=== PATIENT | female | born 1960 | race Caucasian/White ===

== ENCOUNTER 2017-06-19 11:22 | Inpatient (IN) ==
--- NOTE | 2017-06-18 08:53 | Discharge Summary ---
<Enriqueta Vieira E - Last Filed: 06/18/17 08:51> Date of Encounter: 06/18/17 - Discharge Diagnosis (1) Status post total replacement of left shoulder Priority: Primary Status: Acute (2) Arthritis of left shoulder region Priority: Primary Status: Chronic (3) Atrial fibrillation Priority: Secondary Status: Chronic Qualifiers: Atrial fibrillation type: unspecified Qualified Code(s): I48.91 - Unspecified atrial fibrillation (4) AICD (automatic cardioverter/defibrillator) present Priority: Secondary Status: Chronic (5) NSVT (nonsustained ventricular tachycardia) Priority: Secondary Status: Chronic (6) Tobacco dependence Priority: Secondary Status: Chronic (7) Obesity Priority: Secondary Status: Chronic Qualifiers: Obesity type: unspecified obesity type Obesity classification: unspecified obesity classification Serious obesity comorbidity presence: unspecified whether serious comorbidity present Qualified Code(s): E66.9 - Obesity, unspecified - Hospital Course Hospital course: Ms. Velasquez is a 57 year old female - Time Spent with Patient Total time spent providing and/or coordinating discharge services: - Discharge Medications Home Medications: Albuterol Sulfate [Proair Hfa] 2 puff IH Q4-6H PRN 12/29/16 [History] Budesonide/Formoterol 160/4.5 [Symbicort 160/4.5] 2 puff IH BIDR 12/29/16 [ History] Cetirizine HCl [Zyrtec] 10 mg PO DAILY 12/29/16 [History] Enoxaparin [Lovenox] 40 mg SQ DAILY 12/29/16 [History] Lisinopril 2.5 mg PO DAILY 12/29/16 [History] Warfarin [Coumadin] 7.5 mg PO 1800 12/29/16 [History] OxyCODONE Immed Rel [Roxicodone 5 MG] 5 mg PO Q6HR PRN 7 Days #28 tablet [Rx] Metoprolol XL (24 HR) Succ [Toprol Xl] 25 mg PO DAILY 06/19/17 [History] SUMAtriptan Succinate [Imitrex] 100 mg PO DAILY PRN 06/19/17 [History] Allergies/Adverse Reactions: 3 Allergy/AdvReac Type Severity Reaction Status Date / Time fexofenadine [From Violette] Allergy Rash Verified 06/19/17 11:41 hydrocodone Allergy Hives Verified 06/19/17 11:41 loratadine [From Claritin] Allergy See Verified 06/19/17 11:41 Comments codeine AdvReac Vomiting Verified 06/19/17 11:41 tramadol AdvReac Headache Verified 06/19/17 11:41 Primary care physician: Molina Sheridan MD - Patient Status Disposition: Home, Self-Care Condition: Good - Discharge Instructions Follow Up With: Molina Sheridan MD [Primary Care Provider] - <Molina Sheridan - Last Filed: 06/20/17 06:29> Orders not resulted at time of discharge: Pending orders 06/19/17 00:00 XR shoulder complete LT [XR] Routine 06/19/17 01:00 Hemoglobin and Hematocrit [HEME] Routine Date of Encounter: 06/20/17 Time of Encounter: 06:29 - Discharge Diagnosis (1) Obesity (BMI 30.0-34.9) Priority: Secondary Status: Chronic (2) Status post total replacement of left shoulder Priority: Primary Status: Acute (3) Arthritis of left shoulder region Priority: Primary Status: Chronic (4) Atrial fibrillation Priority: Secondary Status: Chronic Qualifiers: Atrial fibrillation type: unspecified Qualified Code(s): I48.91 - Unspecified atrial fibrillation (5) AICD (automatic cardioverter/defibrillator) present Priority: Secondary Status: Chronic (6) NSVT (nonsustained ventricular tachycardia) Priority: Secondary Status: Chronic (7) Tobacco dependence Priority: Secondary Status: Chronic (8) A-fib Priority: Secondary Status: Chronic Qualifiers: Atrial fibrillation type: unspecified Qualified Code(s): I48.91 - Unspecified atrial fibrillation - Hospital Course Hospital course: Ms. Velasquez is a 57 year old female Status post left total shoulder The patient had an uneventful postoperative course. They received antibiotics and physical therapy and were discharged in stable condition. There will follow -up in the office in 2 weeks. - Time Spent with Patient Total time spent providing and/or coordinating discharge services: Primary care physician: Molina Sheridan MD - Patient Status Functional capacity at discharge: independent ambulation Overall status at discharge: patient is progressing back to baseline
[2017-06-19] MEDS ORDERED: CeFAZolin Syr 2,000MG/20 ML 2,000 MG/20 ML SYRINGE IVPB ONE (11:53)
[2017-06-19] MEDS ORDERED: Albuterol 2.5 MG/3 ML NEBULIZER IH ONE (11:53)
[2017-06-19] MEDS ORDERED: Ringers Solution, Lactated 1,000 ML IVC SCH ×2 (12:00→16:28)
[2017-06-19] MEDS ORDERED: Albuterol 2.5 MG/3 ML NEBULIZER ONE (12:01)
--- NOTE | 2017-06-19 13:14 | Anesthesia Evaluation PreOp ---
Date of Encounter: 06/19/17 Time of Encounter: 13:12 - Past History Planned Operation: L-Total Shoulder Cardiac History: HTN (maintained on Lisinopril, Metoprolol), Hyperlipidemia, Arrhythmia (AFib maintained on Coumadin (off x 6 days) Lovenox Bridge - last dose 06/18/2017 @ 2300), Pacemaker/ICD (AICD/Pacer placed 08/05/2011 re: NOn- ischemic Cardiomyopathy - longevity 6yrs-8Months a 05/2017 device check), Other ( LVEF 30-35%) Pulmonary History: Smoker (<1ppd x 45yrs), Asthma, COPD (maintained on Symbicort , ProAir) DIRECTOR OF CARDIAC REHABILITATION History: Denies Any Significant HX Other Medical History: Bleeding (maintained on Coumadin/Lovenox Bridge) Anesthesia History: No Prior Anesthetic Complications (T&A, BTL, AICD implanted 02/2013, L-shoulder RCR 12/2016), Past Anesthesia Alcohol Use: none Drug use: none Medications and Allergies Albuterol Sulfate [Proair Hfa] 2 puff IH Q4-6H PRN 12/29/16 [History] Budesonide/Formoterol 160/4.5 [Symbicort 160/4.5] 2 puff IH BIDR 12/29/16 [ History] Cetirizine HCl [Zyrtec] 10 mg PO DAILY 12/29/16 [History] Enoxaparin [Lovenox] 40 mg SQ DAILY 12/29/16 [History] Lisinopril 2.5 mg PO DAILY 12/29/16 [History] Warfarin [Coumadin] 7.5 mg PO 1800 12/29/16 [History] OxyCODONE Immed Rel [Roxicodone 5 MG] 5 mg PO Q6HR PRN 7 Days #28 tablet [Rx] Metoprolol XL (24 HR) Succ [Toprol Xl] 25 mg PO DAILY 06/19/17 [History] SUMAtriptan Succinate [Imitrex] 100 mg PO DAILY PRN 06/19/17 [History] 3 Allergy/AdvReac Type Severity Reaction Status Date / Time fexofenadine [From Violette] Allergy Rash Verified 06/19/17 11:41 hydrocodone Allergy Hives Verified 06/19/17 11:41 loratadine [From Claritin] Allergy See Verified 06/19/17 11:41 Comments codeine AdvReac Vomiting Verified 06/19/17 11:41 tramadol AdvReac Headache Verified 06/19/17 11:41 - Meds/Allergy Pre-op Review Medications Reviewed: Yes Allergies Reviewed: Yes Beta Blockers on Current Med List: Yes (Metoprolol) If Beta Blockers taken, Date/Time (Last Dose taken): 06/18/2017 @ 2230 Anesthesia Results - Labs Laboratory Tests 11/16/15 05/18/17 06/15/17 13:05 10:41 12:52 WBC 10.1 Hgb 15.0 Hct 46.2 H Plt Count 260 PT INR APTT Sodium Potassium Chloride Carbon Dioxide BUN Creatinine Est GFR (Non-Af Amer) Est Mean Plasma Glucose 108 Hemoglobin A1c 5.4 Cholesterol 238 H LDL Cholesterol, Calc 154 H HDL Cholesterol 38 L 06/15/17 06/15/17 12:52 12:52 WBC Hgb Hct Plt Count PT 19.1 H INR 1.8 APTT 58.0 H Sodium 139 Potassium 4.3 Chloride 107 Carbon Dioxide 27 BUN 10 Creatinine 0.79 Est GFR (Non-Af Amer) > 60 Est Mean Plasma Glucose Hemoglobin A1c Cholesterol LDL Cholesterol, Calc HDL Cholesterol - Imaging EKG: other (EKG dated 06/13/2017 - 86bpm SR, Non-specific T-wave abnormality) Additional studies: ECHO 11/2016 - Impressions: Mildly dilated left ventricle. Mild-moderate LV systolic dysfunction, LVEF 40%. Mild left ventricular diastolic dysfunction. Normal right ventricular size and function. A device lead was visualized in the right atrium and right ventricle. No significant valvular dysfunction. No evidence of pulmonary hypertension. Left Ventricular Wall Motion: Rest Echo Findings The apex, apical inferior, mid inferior, basal inferior, apical anterior, mid anterior, basal anterior, apical septal, mid inferior septal, basal inferior septal, apical lateral, mid anterior lateral, basal anterior lateral, mid anterior septal, mid inferior lateral, basal anterior septal and basal inferior lateral rizvi were hypokinetic. Findings: Study Quality * Suboptimal echo windows. ECG Findings * Normal sinus rhythm. Left Ventricle * Mildly dilated left ventricle. * Mild-moderate LV systolic dysfunction, LVEF 40%. * Normal LV wall thickness. * Mild left ventricular diastolic dysfunction. Right Ventricle * Normal right ventricular size and function. Device lead * A device lead was visualized in the right atrium and right ventricle. Left Atrium * Normal left atrial size. Right Atrium * Right atrium is not well visualized. Aorta * Normally sized aortic root. Pericardium * There is a trivial pericardial effusion present. IVC * The IVC is not dilated. Aortic Valve * Aortic valve not well visualized. It appears trileaflet. * No aortic stenosis. * No aortic regurgitation. Mitral Valve * Mild mitral annular calcification * No mitral stenosis. * Trace mitral regurgitation. Tricuspid Valve * Tricuspid valve not well visualized. * No tricuspid stenosis. * Trace tricuspid regurgitation. * No evidence of pulmonary hypertension. Pulmonic Valve * Pulmonic valve not well visualized. * No pulmonic stenosis. * No pulmonic regurgitation. History Hypercholesteremia History of Smoking Years 42 Packs 1 Family History of CAD Pacer/ICD Implant 2013 a Previous Echo was performed. Measurements: BP: 132/ 74 2D Normal Values RVIDd: 3.50 cm IVSd: .90 cm 0.6 - 1.0 cm LVIDd: 5.90 cm 3.7 - 5.6 cm LVPWd: .90 cm 0.6 - 1.1 cm LVIDs: 4.90 cm 1.5 - 3.6 cm AO: 3.60 cm < 4.0 cm LA volume: 36 Mitral Valve Peak E: .56 m/sec Peak A: .85 m/sec E/A Ratio: 0.7 Tricuspid Valve TV Regurg Peak Grad: 26.00mmHg TV Regurg Peak Jona: 2.57m/sec Updated by Irineo Lind MD, [facility] on 11/17/2016 9:37:09 AM Anesthesia Exam O2 Sat Height 1.83 m Height 1.83 m Height 1.83 m Weight 106.594 kg Weight 106.594 kg Weight 106.594 kg O2 Sat by Pulse Oximetry 95 O2 Sat by Pulse Oximetry 95 Vital Signs Temp Pulse Resp BP Pulse Ox 98.1 F 80 18 115/72 95 06/19/17 11:54 06/19/17 11:54 06/19/17 11:54 06/19/17 11:54 06/19/17 11:54 Height: 6' Weight: 235# BMI = 32 NPO (# of Hours): MNoc Pain Scale Used: Numeric (1 - 10) - HEENT Pupil (Motor): Pupils equal, EOMI Mallampati: II Teeth: Edentulous Oral Opening: Greater than 3 - DIRECTOR OF CARDIAC REHABILITATION LOC: Oriented DIRECTOR OF CARDIAC REHABILITATION Motor: Normal RUE, Normal LUE, Normal RLE, Normal LLE, Normal Face DIRECTOR OF CARDIAC REHABILITATION Sensory: Normal: RUE, LUE, RLE, LLE, Face - Cardiac Rhythm: Regular Murmur: None - Pulmonary Breath Sounds: left Clear Respiratory Effort: Symmetrical Anesthesia Assess/Plan ASA Score: 3 (AFib, Smoker, COPD, Anxiety/depression, Cardiomyopathy/AICD placement) Modified [place] Scale for Level of Consciousness: Cooperative, oriented, and tranquil Anesthetic Plan: General, Regional (supraclavicular PNB) Monitoring Plan: Standard Monitors Recovery Plan: PACU Anes Supervising Prov Stmt: Pt seen/evaluated, R&B Discussed, questions answered and consent obtained. Ari Mathias MD
[2017-06-19] MEDS ORDERED: *HR* FentaNYL (PF) 100 MCG/2 ML VIAL ONE ×3 (13:27→15:29)
[2017-06-19] MEDS ORDERED: *HR* Succinylcholine 200 MG/10 ML VIAL IVP ONE (13:27)
[2017-06-19] MEDS ORDERED: Dexamethasone 4 MG/ML VIAL ONE ×2 (13:27→14:18)
[2017-06-19] MEDS ORDERED: *HR* Midazolam HCl 2 MG/2 ML VIAL ONE (13:27)
[2017-06-19] MEDS ORDERED: *HR* Propofol 200 MG/20 ML VIAL IVP ONE (13:27)
--- NOTE | 2017-06-19 13:31 | History & Physical Report ---
Date of Encounter: 06/19/17 Time of Encounter: 13:31 24 Hour HP Update - Instructions Instructions: If the History and Physical is less than 30 days old and was completed prior to A.M. admission and or procedure and has NOT been updated on calendar day of procedure please complete this update prior to performing procedure. - Update Patient reports changes in Medical Condition: No Changes in examination, assessment, or condition: No Changes in Medication: No Preop tests/diagnostics Reviewed: Yes Surgery Remains Indicated: Yes Consent for Planned Operative Procedure(s) Verified: Yes - Pre-Operative Checklist Preoperative Checklist Indicated: No Prophylactic Antibiotic Ordered: Yes Is VTE Prophylaxis Indicated?: Yes
[2017-06-19] MEDS ORDERED: Lidocaine -MPF 2% 2 ML VIAL ONE (13:33)
[2017-06-19] MEDS ORDERED: Acetaminophen IV 1,000 MG/100 ML INFUS..BTL IVPB ONE (13:45)
[2017-06-19 14:05] LABS: INR 1.1
[2017-06-19] MEDS ORDERED: ROPIVACAINE HCL/PF 0.5% 30 ML VIAL ONE (14:15)
[2017-06-19] MEDS ORDERED: *HR* Midazolam HCl 5 MG/5 ML VIAL IVP ONE (14:24)
[2017-06-19] MEDS ORDERED: Bupivacaine/Clonidine Syringe 1 EACH SYRINGE ONE (14:26)
--- NOTE | 2017-06-19 14:46 | Anesthesia Procedures ---
Date of Encounter: 06/19/17 Time of Encounter: 14:16 Procedures: Anesthesia - Nerve Block Procedure Date: 06/19/17 Time: 14:16 Allergies/Adv Reactions: multiple see chart Pre-op Diagnosis: left shoulder arthritis Surgical Procedure: left total shoulder Checklist: Correct Patient Identifier, Correct procedure, History checked Correct side: Left Blood Thinner: Yes (inr 1.1) Monitor Applied: EKG, BP, Pulse Oximetry Supplemental Oxygen via Nasal Cannula (L/min): 2 Sedation: Versed (mg): 2 Sedation: Fentanyl (mcg): 100 Indication: Post Op Analgesia Pre-op Neuro Deficits: No Block Type: Supraclavicular Catheter placed: No Sterile Technique: Yes Ultrasound used: Yes Anatomy identified: Yes Visual spread of Local: Yes Neuro Stimulation: No Blood on Needle Aspiration: No Smooth Injection of Local: Yes Pain with Injection of Local: No Prep: Chlorhexadine Needle: 22 x 50 mm Stimuplex Local: 0.25% Bupivicaine w/Clonidine 20 mcg/cc (20 ml for supracervical and intercostobrachial), Ropivacaine (30 ml), Other (decadron 8mg in supraclavicular block ) Number of Attempts: 1 Complications: None/effective block Vitals: see nurses notes for vitals, patient tolerated well.
--- NOTE | 2017-06-19 15:25 | Orthopedic Operative Note ---
Date of procedure: 06/19/17 Pre-op diagnosis: Left shoulder arthritis Post-op diagnosis: same Procedure: Procedure: Total Shoulder Replacement left Estimated blood loss: 100 cc Hardware:Arthrex eclipse glenoid: Medium keel eclipse humeral head 47 x 20 35 hollow screw 47 trunnion, 4, 4.75 swivel lock suture anchors. Exam Under anesthesia: Restricted motion all planes Procedural Notes: Grade 4 arthritic changes humeral head glenoid socket, osteophyte formation humeral neck, no complications occurred Operative procedure: The patient was brought to the operating room and placed on the operating room table. After general anesthesia was administered the operative shoulder was examined. Findings were noted. The patient was placed in the modified beachchair position. All pressure points were padded appropriately. And the head was stabilized in the neutral position. The operative extremity was prepped and draped in the sterile surgical fashion. The patient received IV antibiotics prior to skin incision. A standard deltopectoral approach was made to the operative shoulder. Incision was made to the skin and subcutaneous tissue,hemo stasis was obtained with Bovie cautery. Using careful blunt dissection the cephalic vein was identified and mobilized medially. The deltopectoral interval was developed and the clavipectoral fascia was incised. The subscap was released off the lesser tuberosity and tagged with #2 FiberWire suture. The humerus was dislocated osteophytes were present were removed and the humeral cut was made along the anatomic neck. Patient noted to have grade 4 arthritic changes humeral head. Anterior and posterior Bankart retractors were placed to expose the glenoid. Glenoid was noted to have grade 4 arthritic changes. The glenoid guide was seated and the centering hole was made. It was reamed with the appropriate medium reamer. The finishing guide was seated superior and inferior drill holes were placed. Patient punch was seated trial was seated had good fit and fixation. The medium glenoid component was cemented in place held with digital pressure until cemented hardened. Good fit and fixation. The humerus was redislocated and prepared the humerus was sized to a 47, the guide was seated centering pin was placed measured at 35. Trial trunnion was seated 47 x 20 trial was seated humerus was reduced patient good motion and stability. Humerus was redislocated real trunnion was seated and the center of the cut. It was fixed with the 35 Hollow screw, 47 x 20 head was impacted in place had good fit and fixation. Shoulders reduced had good stability. Subscap was repaired with 4 #2 fiber tapes in a Kenny-Chad fashion and secured to the lesser tuberosity with 4, 4.75 swivel lock suture anchors. The deep tissue was irrigated with pulse irrigation, the PA close the shoulder. Prior to this the rotator interval was closed with 1 [id number] Vicryl suture. The deltopectoral interval was closed with a running #1 PDS suture, subcutaneous tissue was irrigated and closed with 0 PDS suture, the skin was closed with Dermabond. Complications: None Surgeon: Molina Sheridan Was there an financial services assistant present: Yes Advertising Teacher: Enriqueta Vieira Estimated blood loss (cc): 100 Condition: stable Disposition: PACU
[2017-06-19] MEDS ORDERED: Ondansetron 4 MG/2 ML VIAL ONE (15:44)
[2017-06-19] MEDS ORDERED: *HR* Promethazine 25 MG/ML VIAL IVP PRN (15:57)
[2017-06-19] MEDS ORDERED: *HR* Promethazine 25 MG/ML VIAL ONE (15:59)
[2017-06-19 16:07] LABS: Hematocrit 39.2 % (35.3-44.9)
[2017-06-19 16:08] LABS: Hemoglobin 12.8 g/dL (11.5-15.4)
--- NOTE | 2017-06-19 16:17 | Anesthesia Evaluation Post Op ---
Date of Encounter: 06/19/17 Time of Encounter: 16:15 - Vital Signs Vital Signs: Vital Signs/O2 Sat/Glucose, Most Current Temp Pulse Resp BP Pulse Ox 06/19/17 16:14 98 F 82 16 117/74 97 06/19/17 16:04 78 16 112/73 96 06/19/17 15:54 89 16 123/78 97 06/19/17 15:44 97.5 F L 91 16 127/83 96 06/19/17 14:18 91 16 141/101 96 - Lungs Lungs: Clear Ascult./Percussion - Airway Airway: Non-obstructed - Cardiovascular Regular Rate - Mental Status Mental Status: Alert & Oriented, Answers Appropriately - Pain Pain Scale: 1 - Nausea Vomiting Nausea Vomiting: Not Present - Hydration Hydration: Ice chips - Discharge PostOp Status: Transfer Patient to floor
[2017-06-19] MEDS ORDERED: Acetaminophen 325 MG TABLET PO PRN (16:28)
[2017-06-19] MEDS ORDERED: Sennosides 8.6 MG TABLET PO PRN (16:28)
[2017-06-19] MEDS ORDERED: MOM Conc 10 ML UD.LIQ PO PRN (16:28)
[2017-06-19] MEDS ORDERED: Naloxone 0.4 MG/ML INJ IVP PRN (16:28)
[2017-06-19] MEDS ORDERED: Temazepam 15 MG CAPSULE PO PRN (16:28)
[2017-06-19] MEDS ORDERED: Ondansetron 4 MG/2 ML VIAL IVP PRN (16:28)
[2017-06-19] MEDS ORDERED: *HR* OxyCODONE/APAP 5/325 TABLET PO PRN (16:28)
[2017-06-19] MEDS ORDERED: CeFAZolin Pre 2,000 MG/100 ML 2,000 MG/100 ML BAG IVPB SCH (16:28)
[2017-06-19] MEDS ORDERED: *HR* OxyCODONE Immed Rel 5 MG TABLET PO PRN (16:28)
[2017-06-19] MEDS ORDERED: SUMAtriptan succinate 50 MG TABLET PO PRN (16:28)
[2017-06-19] MEDS ORDERED: *HR* Warfarin 7.5 MG TABLET PO SCH (18:00)
[2017-06-19] MEDS ORDERED: *HR* Enoxaparin 30 MG/0.3 ML SYRINGE SQ SCH (18:00)
[2017-06-19] MEDS: *HR* Enoxaparin 30 MG/0.3 ML SYRINGE SQ SCH (18:01)
[2017-06-19] MEDS ORDERED: Scopolamine Patch 1.5 MG PATCH.TD72 TD SCH (18:15)
[2017-06-19] MEDS: Nicotine 21 MG PATCH.TD24 TD SCH (18:19)
[2017-06-19] MEDS: ceFAZolin 2,000 MG in 0.9 % Sodium Chloride 100 ML IVPB SCH (19:48)
[2017-06-19] MEDS: Budesonide/Formoterol 160/4.5 MDI IH SCH (20:24)
[2017-06-20 02:12] LABS: Hemoglobin 12.4 g/dL (11.5-15.4)
[2017-06-20 02:18] LABS: INR 1.1; Prothrombin Time 11.9 Seconds (9.4-12.1)
[2017-06-20] MEDS: ceFAZolin 2,000 MG in 0.9 % Sodium Chloride 100 ML IVPB SCH (02:27)
[2017-06-20] MEDS: *HR* Enoxaparin 30 MG/0.3 ML SYRINGE SQ SCH (06:05)
--- NOTE | 2017-06-20 06:30 | Orthopedics Progress Note ---
Date of Encounter: 06/20/17 Time of Encounter: 06:29 - Assessment and Plan (1) Obesity (BMI 30.0-34.9) Current Visit: Yes Status: Chronic (2) Status post total replacement of left shoulder Current Visit: No Status: Acute (3) Arthritis of left shoulder region Current Visit: No Status: Chronic (4) Atrial fibrillation Current Visit: No Status: Chronic Qualifiers: Atrial fibrillation type: unspecified Qualified Code(s): I48.91 - Unspecified atrial fibrillation (5) AICD (automatic cardioverter/defibrillator) present Current Visit: No Status: Chronic (6) NSVT (nonsustained ventricular tachycardia) Current Visit: No Status: Chronic (7) Tobacco dependence Current Visit: No Status: Chronic (8) A-fib Current Visit: No Status: Chronic Qualifiers: Atrial fibrillation type: unspecified Qualified Code(s): I48.91 - Unspecified atrial fibrillation Subjective Interval history: Patient was seen this morning doing well without complaints. Afebrile vital signs stable. Operative extremity: Neurovascularly intact Dressing clean dry and intact Calves nontender Assessment and plan: Continue with postoperative care Discharged today Objective Vital signs: Vital Signs Temp Pulse Resp BP Pulse Ox 06/20/17 06:24 97.6 F 78 18 111/70 93 06/20/17 04:52 97.7 F 76 15 106/67 94 06/19/17 23:53 98.1 F 87 18 111/73 95 06/19/17 20:24 16 96 06/19/17 19:23 97.9 F 80 16 117/76 98 06/19/17 18:22 69 16 120/76 98 06/19/17 17:49 67 16 119/76 97 06/19/17 17:09 97.5 F L 67 18 120/78 100 06/19/17 16:39 97.6 F 71 16 118/77 96 06/19/17 16:14 98 F 82 16 117/74 97 06/19/17 16:04 78 16 112/73 96 06/19/17 15:54 89 16 123/78 97 06/19/17 15:44 97.5 F L 91 16 127/83 96 06/19/17 14:18 91 16 141/101 96 06/19/17 12:12 18 115/72 95 06/19/17 11:54 98.1 F 80 18 115/72 95 Intake and Output 06/19/17 06/19/17 06/20/17 15:59 23:59 07:59 Intake Total 150 / 150 150 / 150 Output Total 1050 / 1050 Balance -900 / -900 150 / 150 Intake: IV Fluids 100 / 100 100 / 100 Ancef 2,000 MG In 0.9 % Sodium 100 / 100 100 / 100 Chloride 100 ML @ 200 mls/hr IVPB Q8H [facility] Rx#:[id number] Oral 50 / 50 50 / 50 Output: Urine 850 / 850 Estimated Blood Loss 200 / 200 Other: # Voids 1 Weight 106.594 kg - Labs CBC & BMP: 06/20/17 01:54 - VTE Documentation of Mechanical Device: Venous foot pump, device Consult Discharge Plan - Plan Referrals: Molina Sheridan MD [Primary Care Provider] -
[2017-06-20] MEDS: Nicotine 21 MG PATCH.TD24 TD SCH (07:30)
[2017-06-20] MEDS: Budesonide/Formoterol 160/4.5 MDI IH SCH (08:11)
[2017-06-20] MEDS ORDERED: Metoprolol XL (24 HR) Succ 25 MG TAB.ER.24H PO SCH (09:00)
[2017-06-20] MEDS ORDERED: Cetirizine HCl 5 MG/5 ML UDC PO SCH (09:00)
[2017-06-20 10:41] VITALS: BP 112/69
== END 2017-06-20 11:36 | disposition home or self-care (01) | DRG 483 ==
LOC: SAMDAY 11:22 → 3NENU 16:37
PROVIDERS: ADMIT Orthopaedic Surgery; ATTEND Orthopaedic Surgery

== ENCOUNTER 2017-08-17 11:21 | Observation (INO) ==
--- NOTE | 2017-08-17 11:33 | Emergency Department Note ---
Disposition Clinical Impression: A-fib, Chest pain Disposition: Admitted As Inpatient Condition: Undetermined Referrals: Ashok,Quynh Valdez CNP [Primary Care Provider] - Forms: ED Satisfaction Letter General Adult HPI - General Chief complaint: ED Arrhythmia/Palpitations Stated complaint: dizziness, chest heaviness Time Seen by Provider: 08/17/17 11:26 Nursing Notes Reviewed: Yes Vital Signs Reviewed: Yes - History of Present Illness Pain Scale: 0 - Related Data Home Medications Medication Instructions Recorded Confirmed Albuterol Sulfate [Proair Hfa] 2 puff IH Q4-6H PRN 12/29/16 08/17/17 Budesonide/Formoterol 160/4.5 2 puff IH BIDR 12/29/16 08/17/17 [Symbicort 160/4.5] Lisinopril 2.5 mg PO HS 12/29/16 08/17/17 Warfarin [Coumadin] 7.5 mg PO SUTH 12/29/16 08/17/17 Metoprolol XL (24 HR) Succ [Toprol 25 mg PO HS 06/19/17 08/17/17 Xl] SUMAtriptan Succinate [Imitrex] 100 mg PO Q2H PRN 06/19/17 08/17/17 Fluticasone Furoate [Flonase 1 spr NS DAILY 08/17/17 08/17/17 Sensimist] Warfarin [Coumadin] 5 mg PO [id number] 08/17/17 08/17/17 Allergies Allergy/AdvReac Type Severity Reaction Status Date / Time fexofenadine [From Violette] Allergy See Verified 08/17/17 13:12 Comments hydrocodone Allergy Hives Verified 08/17/17 13:12 loratadine [From Claritin] Allergy See Verified 08/17/17 13:12 Comments codeine AdvReac Vomiting Verified 08/17/17 13:12 Oxycodone AdvReac Vomiting Verified 08/17/17 13:12 tramadol AdvReac Headache Verified 08/17/17 13:12 Past Medical History - Past Medical History Medical history: Reports: arthritis, atrial fibrillation, hyperlipidemia, hypertension Surgical history: Reports: no surgical history Psychiatric history: Reports: no psych history 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 - Social History Smoking Status: Current every day smoker Smokeless Tobacco Status: No Alcohol use: Reports: none Drug use: Reports: none Course Vital Signs Temperature 98.2 F 08/17/17 11:22 Pulse Rate 102 08/17/17 11:22 Respiratory Rate 16 08/17/17 11:22 Blood Pressure 142/93 08/17/17 11:22 O2 Sat by Pulse Oximetry 96 08/17/17 11:22 Temperature 98.2 F 08/17/17 11:32 Pulse Rate 84 08/17/17 12:30 Respiratory Rate 18 08/17/17 12:30 Blood Pressure 103/65 08/17/17 12:30 O2 Sat by Pulse Oximetry 94 08/17/17 12:36 Oxygen Delivery Oxygen Delivery Room Air Medical Decision Making - MDM Narrative Medical decision making narrative: Chest X-Ray 08/17/17 11:26 IMPRESSION: Left basilar atelectasis and cardiomegaly. Otherwise similar appearing chest without acute abnormality. D/ / Christian Saini MD / Christian Saini MD Interpreting Provider: Christian Saini MD 1320 hrs.: Patient's labs are back and a look good. We will bring her into the hospital. She is in agreement with plan. - Lab Data Result diagrams: 08/17/17 11:38 08/17/17 11:38 Lab Results 08/17/17 08/17/17 08/17/17 Range/Units 11:38 11:38 11:38 WBC 11.2 H (4.3-11.1) K/mcL RBC 5.04 H (3.82-4.97) M/mcL Hgb 15.7 H (11.5-15.4) g/dL Hct 47.2 H (35.3-44.9) % MCV 93.7 (83.0-100.0) fL MCH 31.2 (28.0-33.3) pg MCHC 33.3 (31.6-35.5) g/dL RDW 14.6 H (11.5-14.5) % Plt Count 271 (140-400) K/mcL MPV 10.7 (9.4-12.4) fL Immature Gran % 0.3 (0-4) % Seg Neutrophils % 61.0 % Lymphocytes % 32.8 % Monocytes % 4.5 % Eosinophils % 0.9 % Basophils % 0.5 % Neutrophils # 6.8 (1.6-8.9) K/mcL Lymphocytes # 3.7 (0.6-4.6) K/mcL Monocytes # 0.5 (0.0-1.3) K/mcL Eosinophils # 0.1 (0.0-0.6) K/mcL Basophils # 0.1 (0.0-0.2) K/mcL PT 29.7 H (9.4-12.1) Seconds INR 2.7 Sodium 139 (136-145) mEq/L Potassium 3.7 (3.5-5.1) mEq/L Chloride 108 H (98-107) mEq/L Carbon Dioxide 24 (23-29) mEq/L BUN 10 (6-20) mg/dL Creatinine 0.91 (0.60-1.20) mg/dL Est GFR ( Amer) > 60 (> 60) Est GFR (Non-Af Amer) > 60 (> 60) BUN/Creatinine Ratio 11 (6-26) Glucose 159 H (70-105) mg/dL Calculated Osmolality 290 (280-300) Calcium 9.3 (8.6-10.3) mg/dL Troponin I < 0.03 (< 0.04) ng/mL Attestation Statement - Attestation Attestation: This documentation is done with the assistance of Dragon dictation. Despite efforts made to ensure accuracy, there may be inaccuracies in engineer operations and maintenance or spelling and typographical errors. I examined this patient and my medical decision-making was reviewed with the Resident Physician. I agree with the documented findings, disposition and treatment plan as described except to the extent set forth below. Patient seen and evaluated by Dr. Sprague and myself, I agree with his evaluation management plan, supervise care the patient's stay. Patient presents today she says she has any symptoms A. fib she saw her van helper had them do a a pacemaker check she said she had some intermittent she calls them bleeps but had no other signs of A. fib. She does take blood thinner for that she said when this happens she gets a little lightheaded she says that she has not passed out. Were in to do a workup on her and reassess. She may need admission. She is in agreement with plan.
--- NOTE | 2017-08-17 11:35 | Emergency Department Note ---
Disposition Clinical Impression: A-fib Qualifiers: Atrial fibrillation type: persistent Qualified Code(s): I48.1 - Persistent atrial fibrillation Chest pain Qualifiers: Chest pain type: unspecified Qualified Code(s): R07.9 - Chest pain, unspecified Disposition: Admitted As Inpatient Condition: Undetermined Referrals: Quynh Pulido CNP [Primary Care Provider] - Forms: ED Satisfaction Letter Time of Disposition: 13:25 Arrhythmia/Palpitations HPI - General Chief Complaint: ED Arrhythmia/Palpitations Stated Complaint: dizziness, chest heaviness Time Seen by Provider: 08/17/17 11:26 Source: patient Mode of arrival: ambulatory Limitations: no limitations Nursing Notes Reviewed: Yes Vital Signs Reviewed: Yes - History of Present Illness HPI Narrative: 57-year-old female with history of COPD, hypertension, atrial fibrillation who currently has a defibrillator and is on warfarin for persistent and intermittent atrial fibrillation, arrives to the emergency department with complaint of ill feeling. The patient states she is experiencing palpitations and some pressure on her chest is very similar to when she was initially diagnosed with atrial fibrillation. Patient has no history of ID. No previous cardiac catheter but the patient has had stress testing. The patient states that this started 5 days ago. Patient states it has stayed the same but she just was very concerned. The patient had an interrogation of her defibrillator roughly 3 days ago. This revealed no acute process. She called her cardiology office and instructed to come to the emergency department as it may be something else is which she was told. Her road commissioner is currently out of the office on vacation at this time so she was instructed to come to the emergency department for evaluation. Patient denies any other complaints at this time including hemoptysis, unilateral leg swelling, history DVT or PE, recent surgeries or immobilizations. The patient is resting comfortably in the room at this time. Patient states that her warfarin INR level was checked one day ago was 3.9. The patient states that she was instructed to stop taking her warfarin for 1 day and change her medications which she says is not uncommon for her. - Related Data Home Medications Medication Instructions Recorded Confirmed Albuterol Sulfate [Proair Hfa] 2 puff IH Q4-6H PRN 12/29/16 08/17/17 Budesonide/Formoterol 160/4.5 2 puff IH BIDR 10/26/17 06/14/18 [Symbicort 160/4.5] Lisinopril 2.5 mg PO HS 12/29/16 08/17/17 Warfarin [Coumadin] 7.5 mg PO SUTH 12/29/16 08/17/17 Metoprolol XL (24 HR) Succ [Toprol 25 mg PO HS 06/19/17 08/17/17 Xl] SUMAtriptan Succinate [Imitrex] 100 mg PO Q2H PRN 06/19/17 08/17/17 Fluticasone Furoate [Flonase 1 spr NS DAILY 08/17/17 08/17/17 Sensimist] Warfarin [Coumadin] 5 mg PO MOTUWEFRSA 08/17/17 08/17/17 Allergies Allergy/AdvReac Type Severity Reaction Status Date / Time fexofenadine [From Violette] Allergy See Verified 08/17/17 13:12 Comments hydrocodone Allergy Hives Verified 08/17/17 13:12 loratadine [From Claritin] Allergy See Verified 08/17/17 13:12 Comments codeine AdvReac Vomiting Verified 08/17/17 13:12 Oxycodone AdvReac Vomiting Verified 08/17/17 13:12 tramadol AdvReac Headache Verified 08/17/17 13:12 All systems ED: reviewed and negative except as stated. Constitutional: Denies: fever, chills, weakness ENT ED: Denies: congestion Cardiovascular: Reports: chest pain, palpitations. Denies: dyspnea on exertion , edema, syncope Respiratory: Reports: dyspnea. Denies: cough, wheezes Gastrointestinal: Denies: abdominal pain, nausea, vomiting Genitourinary: Denies: urgency, dysuria Musculoskeletal: Denies: back pain, neck pain Integumentary: Denies: rash Neurological: Denies: headache Past Medical History - Past Medical History Attestation: Yes The following information was validated with the patient. Source: patient, old records reviewed Medical history: Reports: arthritis, atrial fibrillation, hyperlipidemia, hypertension Surgical history: Reports: no surgical history Psychiatric history: Reports: no psych history [employer] history: Reports: bilateral tubal ligation - Social History Smoking Status: Current every day smoker Smokeless Tobacco Status: No Alcohol use: Reports: none Drug use: Reports: none Physical Exam - General Limitations: no limitations General appearance: alert, in no apparent distress, anxious - Head Head exam: atraumatic, normocephalic, normal inspection - Eye Eye exam: Present: normal appearance, PERRL, EOMI - ENT ENT exam: normal exam, normal oropharynx, mucous membranes moist - Neck Neck exam: Present: normal inspection, full ROM, trachea midline - Chest Chest inspection: Present: normal inspection, symmetric chest wall rise - Respiratory Respiratory exam: Present: normal lung sounds bilaterally - Cardiovascular Cardiovascular exam: Present: tachycardia, irregular rhythm, normal heart sounds - Abdominal Exam Abdominal exam: Present: soft, Non-Tender. Absent: tenderness, distention, guarding, rebound, rigidity - Extremities Exam Extremities exam: Present: normal inspection, full ROM. Absent: tenderness, pedal edema - Back Exam Back exam: Present: normal inspection, full ROM. Absent: tenderness - Neurological Exam Neurological exam: Present: alert, oriented X3 - Skin Skin exam: Present: warm, dry, intact, normal color Course Vital Signs Temperature 98.2 F 08/17/17 11:22 Pulse Rate 102 08/17/17 11:22 Respiratory Rate 16 08/17/17 11:22 Blood Pressure 142/93 08/17/17 11:22 O2 Sat by Pulse Oximetry 96 08/17/17 11:22 Temperature 98.2 F 08/17/17 11:32 Pulse Rate 84 08/17/17 12:30 Respiratory Rate 18 08/17/17 12:30 Blood Pressure 103/65 08/17/17 12:30 O2 Sat by Pulse Oximetry 94 08/17/17 12:36 Oxygen Delivery Oxygen Delivery Room Air Arrhythmia/Palpitations - [facility] Narrative Medical decision making narrative: Patient's workup in the emergency department demonstrates no acute process with the exception of the patient eating mildly tachycardic in A. fib. We will admit the patient to the hospital at this time. The patient agrees to plan of care. No further questions or concerns noted at this time. Patient is currently chest pain-free at this time. Accepted by Dr. Matute. - Lab Data Lab results reviewed: Yes I reviewed the patient's lab results. Result diagrams: 08/17/17 11:38 08/17/17 11:38 Lab Results 08/17/17 08/17/17 08/17/17 Range/Units 11:38 11:38 11:38 WBC 11.2 H (4.3-11.1) K/mcL RBC 5.04 H (3.82-4.97) M/mcL Hgb 15.7 H (11.5-15.4) g/dL Hct 47.2 H (35.3-44.9) % MCV 93.7 (83.0-100.0) fL MCH 31.2 (28.0-33.3) pg MCHC 33.3 (31.6-35.5) g/dL RDW 14.6 H (11.5-14.5) % Plt Count 271 (140-400) K/mcL MPV 10.7 (9.4-12.4) fL Immature Gran % 0.3 (0-4) % Seg Neutrophils % 61.0 % Lymphocytes % 32.8 % Monocytes % 4.5 % Eosinophils % 0.9 % Basophils % 0.5 % Neutrophils # 6.8 (1.6-8.9) K/mcL Lymphocytes # 3.7 (0.6-4.6) K/mcL Monocytes # 0.5 (0.0-1.3) K/mcL Eosinophils # 0.1 (0.0-0.6) K/mcL Basophils # 0.1 (0.0-0.2) K/mcL PT 29.7 H (9.4-12.1) Seconds INR 2.7 Sodium 139 (136-145) mEq/L Potassium 3.7 (3.5-5.1) mEq/L Chloride 108 H (98-107) mEq/L Carbon Dioxide 24 (23-29) mEq/L BUN 10 (6-20) mg/dL Creatinine 0.91 (0.60-1.20) mg/dL Est GFR ( Amer) > 60 (> 60) Est GFR (Non-Af Amer) > 60 (> 60) BUN/Creatinine Ratio 11 (6-26) Glucose 159 H (70-105) mg/dL Calculated Osmolality 290 (280-300) Calcium 9.3 (8.6-10.3) mg/dL Troponin I < 0.03 (< 0.04) ng/mL - Radiology Data Radiology results reviewed: Yes I reviewed the patient's radiology results. Chest X-Ray 08/17/17 11:26 IMPRESSION: Left basilar atelectasis and cardiomegaly. Otherwise similar appearing chest without acute abnormality. D/ / Christian Saini MD / Christian Saini MD Interpreting Provider: Christian Saini MD - EKG Data EKG attestation: Yes I reviewed and interpreted this EKG. EKG results narrative: Heart rate 113. Atrial fibrillation. No ST elevation or ST depression noted.
[2017-08-17 11:52] LABS: Basophils # 0.1 K/mcL (0.0-0.2); Basophils % 0.5 %; Eosinophils # 0.1 K/mcL (0.0-0.6); Eosinophils % 0.9 %; Hematocrit 47.2 % (35.3-44.9); Hemoglobin 15.7 g/dL (11.5-15.4); Immature Granulocytes % 0.3 % (0-4); Lymphocytes # 3.7 K/mcL (0.6-4.6); Lymphocytes % 32.8 %; Mean Corpuscular HGB Conc 33.3 g/dL (31.6-35.5); Mean Corpuscular Hemoglobin 31.2 pg (28.0-33.3); Mean Corpuscular Volume 93.7 fL (83.0-100.0); Mean Platelet Volume 10.7 fL (9.4-12.4); Monocytes # 0.5 K/mcL (0.0-1.3); Monocytes % 4.5 %; Neutrophils # 6.8 K/mcL (1.6-8.9); Platelet Count 271 K/mcL (140-400); Red Blood Count 5.04 M/mcL (3.82-4.97); Red Cell Distribution Width 14.6 % (11.5-14.5)
[2017-08-17 12:04] LABS: INR 2.7; Prothrombin Time 29.7 Seconds (9.4-12.1)
[2017-08-17 12:14] LABS: Troponin I < 0.03 ng/mL (< 0.04)
[2017-08-17 12:19] LABS: BUN/Creatinine Ratio 11 (6-26); Blood Urea Nitrogen 10 mg/dL (6-20); Calcium 9.3 mg/dL (8.6-10.3); Carbon Dioxide 24 mEq/L (23-29); Chloride 108 mEq/L (98-107); Glucose 159 mg/dL (70-105); Osmolality,Calculated 290 (280-300); Potassium 3.7 mEq/L (3.5-5.1); Sodium 139 mEq/L (136-145); eGFR For African Americans > 60 (> 60); eGFR For Non-African Americans > 60 (> 60)
[2017-08-17] MEDS ORDERED: SUMAtriptan succinate 50 MG TABLET PO PRN (14:09)
[2017-08-17] MEDS ORDERED: Albuterol 2.5 MG/3 ML NEBULIZER IH PRN (14:12)
[2017-08-17] MEDS ORDERED: *HR* Warfarin 7.5 MG TABLET PO SCH (14:15)
[2017-08-17] MEDS ORDERED: Naloxone 0.4 MG/ML INJ IVP PRN (14:18)
[2017-08-17] MEDS ORDERED: Acetaminophen 325 MG TABLET PO PRN (14:18)
[2017-08-17] MEDS: Budesonide/Formoterol 160/4.5 MDI IH SCH ×2 (15:32→22:16)
--- NOTE | 2017-08-17 15:51 | Internal Med History&Physical ---
Date of Encounter: 08/17/17 Time of Encounter: 14:17 Internal Medicine - H&P: HPI Chief complaint: "Palpitations in chest" Admitted From: Emergency Dept Plans for Post Hospital Care: Home History of present illness: Ms. Velasquez is a 57 year old female who presented to ED today with heart palpitations. She states that she has a history of Afib with AICD. She has been relatively well-controlled on metoprolol and coumadin recently. She states that symptoms started 4 days ago, and have been intermittent. She states that she has a "heaviness like a blanket" across her chest. She denies any fever, chills, SOB, nausea, vomiting, abdominal pain, changes in bladder, or changes in bowels. She had an interrogation of her defibrillator roughly 3 days ago. This revealed no acute process. She called her cardiology office and was instructed to come to the emergency department as it may be something else. Her prevention specialist is currently out of the office on vacation at this time so she was instructed to come to the emergency department for evaluation. Patient is sitting in bed eating 2 cheeseburgers. She is in no acute distress at this time. She states that she has had no palpitations since given metoprolol 30 minutes ago in ED. HR is now in 80s. In the ED, EKG showed Afib with RVR. CXR showed no acute abnormalities except left basilar atelectasis. Labwork was unremarkable. Past Med Surg Social Fam HX - Past Medical History Attestation: Yes The following information was validated with the patient. Source: patient Medical history: arthritis, atrial fibrillation, hyperlipidemia, hypertension Additional medical history: SMOKER. PACEMAKER/DEFIBRILLATOR Psychiatric history: no psych history - Past Surgical History Surgical History: no surgical history Additional surgical history: Tubal. AICD. L SHOULDER SCOPE - Social History Smoking Status: Current every day smoker Packs per day: 3/4 pack Smokeless Tobacco Status: No Alcohol use: none Drug use: none - Additional Family History Additional family history: No significant family history per patient. Internal Medicine - H&P: Meds Albuterol Sulfate [Proair Hfa] 2 puff IH Q4-6H PRN 12/29/16 [History] Budesonide/Formoterol 160/4.5 [Symbicort 160/4.5] 2 puff IH BIDR 12/29/16 [ History] Lisinopril 2.5 mg PO HS 12/29/16 [History] Warfarin [Coumadin] 7.5 mg PO SUTH 12/29/16 [History] Metoprolol XL (24 HR) Succ [Toprol Xl] 25 mg PO HS 06/19/17 [History] SUMAtriptan Succinate [Imitrex] 100 mg PO Q2H PRN 06/19/17 [History] Fluticasone Furoate [Flonase Sensimist] 1 spr NS DAILY 08/17/17 [History] Warfarin [Coumadin] 5 mg PO MOTUWEFRSA 08/17/17 [History] 3 Allergy/AdvReac Type Severity Reaction Status Date / Time fexofenadine [From Violette] Allergy See Verified 08/17/17 13:12 Comments hydrocodone Allergy Hives Verified 08/17/17 13:12 loratadine [From Claritin] Allergy See Verified 08/17/17 13:12 Comments codeine AdvReac Vomiting Verified 08/17/17 13:12 Oxycodone AdvReac Vomiting Verified 08/17/17 13:12 tramadol AdvReac Headache Verified 08/17/17 13:12 All Systems PM: A 10-system review of systems was performed and is negative for pertinent findings except as documented above in the HPI. - Constitutional Vitals: Temp Pulse Resp BP Pulse Ox 97.8 F 97 18 112/76 98 08/17/17 15:35 08/17/17 15:35 08/17/17 15:35 08/17/17 15:35 08/17/17 15:35 General appearance: Present: cooperative, A&O X 3, pleasant, no acute distress, obese, answers questions appropriately - Head Head exam: Present: atraumatic, normal inspection, normocephalic - Eye Eye exam: Present: EOMI, PERRL. Absent: conjunctival injection, nystagmus, scleral icterus - ENT ENT exam: Present: mucous membranes moist, normal external ear exam, normal oropharynx - Neck Neck exam general surgery: Present: supple, trachea midline. Absent: lymphadenopathy, tenderness, thyromegaly - Respiratory Respiratory exam: Present: CTAB. Absent: accessory muscle use, rales, rhonchi, wheezes Additional comments: Normal WOB - Cardiovascular Cardiovascular exam: Present: RRR, +S1, +S2. Absent: diastolic murmur, gallop, rubs, systolic murmur Additional comments: No BLE edema - GI/Abdominal GI/Abdominal exam: Present: normal bowel sounds, soft. Absent: distended, hepatomegaly, mass, splenomegaly, tenderness - Neurological Exam Neurological exam: Present: alert, CN II-XII intact, oriented X3, no focal deficits, strengths equal and symetr throughout. Absent: motor sensory deficit , facial droop, speech deficit - Psychiatric Psychiatric exam: Present: normal affect, normal mood. Absent: agitated, anxious, depressed - Skin Skin exam: Present: dry, intact, warm. Absent: cyanosis, rash Internal Med - H&P Results - Labs CBC & Chem 7: 08/17/17 11:38 08/17/17 11:38 - Assessment and plan (1) Chest pain Current Visit: Yes Status: Acute Assessment and plan: Admit for observation with telemetry. Trend troponin x 3. Obtain ECHO in AM. Continue home medications. Recheck labwork in AM. Qualifiers: Chest pain type: other chest pain Qualified Code(s): R07.89 - Other chest pain; R07.8 - Other chest pain (2) Atrial fibrillation Current Visit: Yes Status: Acute Assessment and plan: Acute on chronic. NSR at this time. Resume home metoprolol XL QHS. Continue home coumadin; pharmacy consulted for management. Continue telemetry. ECHO in AM. Qualifiers: Atrial fibrillation type: persistent Qualified Code(s): I48.1 - Persistent atrial fibrillation (3) Arthritis of left shoulder region Current Visit: Yes Status: Chronic Assessment and plan: PT/OT consulted. (4) Status post total replacement of left shoulder Current Visit: Yes Status: Acute Assessment and plan: Management as per above. (5) Tobacco dependence Current Visit: Yes Status: Chronic Assessment and plan: Counselled on smoking cessation. (6) Obesity Current Visit: Yes Status: Chronic Assessment and plan: Counselled on lifestyle modifications. Qualifiers: Obesity type: unspecified obesity type Obesity classification: unspecified obesity classification Serious obesity comorbidity presence: unspecified whether serious comorbidity present Qualified Code(s): E66.9 - Obesity, unspecified (7) DVT prophylaxis Current Visit: Yes Status: Acute Assessment and plan: Continue home warfarin and SCDs. - Time Spent With Patient Total time spent is greater than 50% in coordination of care (as documented) at patient's floor/unit and/or counseling patient: less than 15 minutes
[2017-08-17] MEDS: Fluticasone Propionate Nasal 50 MCG/SPRAY BOTTLE NS SCH (15:56)
[2017-08-17] MEDS ORDERED: Perflutren Lipid Microsphere 1.3 ML in 0.9 % Sodium Chloride 8.7 ML IVP ONE (19:00)
[2017-08-17] MEDS ORDERED: Metoprolol XL (24 HR) Succ 25 MG TAB.ER.24H PO SCH (21:00)
[2017-08-18 06:08] LABS: Basophils # 0.1 K/mcL (0.0-0.2); Basophils % 0.7 %; Eosinophils # 0.1 K/mcL (0.0-0.6); Eosinophils % 0.9 %; Hematocrit 44.2 % (35.3-44.9); Hemoglobin 14.3 g/dL (11.5-15.4); Immature Granulocytes % 0.2 % (0-4); Lymphocytes # 3.4 K/mcL (0.6-4.6); Mean Corpuscular HGB Conc 32.4 g/dL (31.6-35.5); Mean Corpuscular Hemoglobin 30.1 pg (28.0-33.3); Mean Corpuscular Volume 93.1 fL (83.0-100.0); Mean Platelet Volume 10.7 fL (9.4-12.4); Monocytes # 0.6 K/mcL (0.0-1.3); Monocytes % 5.8 %; Neutrophils # 5.4 K/mcL (1.6-8.9); Platelet Count 242 K/mcL (140-400); Red Blood Count 4.75 M/mcL (3.82-4.97); Red Cell Distribution Width 14.8 % (11.5-14.5); Segmented Neutrophils % 56.4 %
[2017-08-18 06:14] LABS: Prothrombin Time 32.7 Seconds (9.4-12.1)
[2017-08-18 06:21] LABS: BUN/Creatinine Ratio 17 (6-26); Blood Urea Nitrogen 14 mg/dL (6-20); Carbon Dioxide 25 mEq/L (23-29); Chloride 110 mEq/L (98-107); Chol/HDL Ratio 5.6 (0-4.9); Cholesterol 208 mg/dL (< 200); Glucose 119 mg/dL (70-105); HDL Cholesterol 37 mg/dL (40-59); LDL Cholesterol,Calculated 144 mg/dL (0-99); Magnesium 2.3 mg/dL (1.6-2.6); Osmolality,Calculated 290 (280-300); Sodium 139 mEq/L (136-145); Triglycerides 136 mg/dL (< 150); eGFR For African Americans > 60 (> 60); eGFR For Non-African Americans > 60 (> 60)
[2017-08-18] MEDS: Budesonide/Formoterol 160/4.5 MDI IH SCH (07:29)
[2017-08-18] MEDS: Fluticasone Propionate Nasal 50 MCG/SPRAY BOTTLE NS SCH (10:03)
[2017-08-18 11:36] VITALS: BP 107/73
--- NOTE | 2017-08-18 12:20 | Discharge Summary ---
Date of Encounter: 08/18/17 Time of Encounter: 12:17 - Discharge Diagnosis (1) Atrial fibrillation Priority: Primary Status: Acute Qualifiers: Atrial fibrillation type: persistent Qualified Code(s): I48.1 - Persistent atrial fibrillation (2) Chest pain Priority: Primary Status: Acute Qualifiers: Chest pain type: other chest pain Qualified Code(s): R07.89 - Other chest pain; R07.8 - Other chest pain (3) Status post total replacement of left shoulder Priority: Secondary Status: Acute (4) Arthritis of left shoulder region Priority: Secondary Status: Chronic (5) Tobacco dependence Priority: Primary Status: Chronic (6) Obesity Priority: Primary Status: Chronic Qualifiers: Obesity type: unspecified obesity type Obesity classification: unspecified obesity classification Serious obesity comorbidity presence: unspecified whether serious comorbidity present Qualified Code(s): E66.9 - Obesity, unspecified Hospital course: Ms. Velasquez is a 57 year old female with past medical history A. fib (on Coumadin), CHF, and NSVT with AICD resented to [facility] on 08/17/17 with complaints of palpitations and chest discomfort. She was placed in observation status for further workup and treatment. She was found to be in A. fib with slightly elevated heart rates on arrival; max heart rate 101. She was symptomatic with palpitations and chest discomfort. Heart rate improved with additional dose of home BB. She had an echocardiogram that showed an EF of 35-40%, global systolic dysfunction and hypokinetic wall motion abnormalities (unchanged from previous). CXR with cardiomegaly, otherwise nonacute. Serial troponins negative. Sx's resolved as heart rate was controlled. Patient requesting to go home. Of note blood pressure was soft/ borderline. Discussed possibility of raising home BB with patient. She decided to continue current dose of BB. Advised her to follow-up with Dr. Langston's office on Monday. Also advised to return to ER if chest pain/ palpitations recur. Educated on avoiding triggers such as smoking, caffeine. Discharge discussed with: patient (Seen and examined at bedside. Patient is new to me, information obtained from chart review and patient report. Patient says she feels better and is back to baseline. No more chest pain or palpitations. She is requesting discharge home.) - Time Spent with Patient Total time spent providing and/or coordinating discharge services: - Discharge Medications Home Medications: Albuterol Sulfate [Proair Hfa] 2 puff IH Q4-6H PRN 12/29/16 [History] Budesonide/Formoterol 160/4.5 [Symbicort 160/4.5] 2 puff IH BIDR 12/29/16 [ History] Lisinopril 2.5 mg PO HS 12/29/16 [History] Warfarin [Coumadin] 7.5 mg PO SUTH 12/29/16 [History] Metoprolol XL (24 HR) Succ [Toprol Xl] 25 mg PO HS 06/19/17 [History] SUMAtriptan Succinate [Imitrex] 100 mg PO Q2H PRN 06/19/17 [History] Fluticasone Furoate [Flonase Sensimist] 1 spr NS DAILY 08/17/17 [History] Warfarin [Coumadin] 5 mg PO MOTUWEFRSA 08/17/17 [History] Allergies/Adverse Reactions: 3 Allergy/AdvReac Type Severity Reaction Status Date / Time fexofenadine [From Violette] Allergy See Verified 08/17/17 13:12 Comments hydrocodone Allergy Hives Verified 08/17/17 13:12 loratadine [From Claritin] Allergy See Verified 08/17/17 13:12 Comments codeine AdvReac Vomiting Verified 08/17/17 13:12 Oxycodone AdvReac Vomiting Verified 08/17/17 13:12 tramadol AdvReac Headache Verified 08/17/17 13:12 Date of admission: 08/17/17 13:52 Primary care physician: Quynh Pulido CNP Consults: 08/17/17 14:22 Consult for Pharmacy Education [CONS] Stat Reason for Consult: Coumadin Dosing Call Completed: No Discharging clinician: Isabella Irvin Anticipated date of discharge: 08/18/17 - Constitutional Vitals: Temp Pulse Resp BP Pulse Ox 97.7 F 68 16 107/73 98 08/18/17 11:35 08/18/17 11:35 08/18/17 11:35 08/18/17 11:35 08/18/17 11:35 General appearance: Present: cooperative, A&O X 3, pleasant, no acute distress, obese, answers questions appropriately - Head Head exam: Present: atraumatic, normocephalic - Eye Eye exam: Present: PERRL, conjuntiva pink, sclera anicteric Pupils: Present: PERRL - Neck Neck exam general surgery: Present: supple, trachea midline. Absent: lymphadenopathy - Respiratory Respiratory exam: Present: CTAB. Absent: accessory muscle use, rales, rhonchi, wheezes - Cardiovascular Cardiovascular exam: Present: irregular rhythm (Tele: a-fib), +S1, +S2. Absent : diastolic murmur, gallop, rubs, systolic murmur Additional comments: Tele: a-fib - GI/Abdominal GI/Abdominal exam: Present: normal bowel sounds, soft, no peritoneal signs. Absent: distended, tenderness - Extremities Exam Extremities exam: Present: warm, radial pulses palpable and symmetrical. Absent : calf tenderness, cyanotic, pedal edema - Neurological Exam Neurological exam: Present: CN II-XII intact, oriented X3, no focal deficits. Absent: pronater drift, facial droop, speech deficit - Skin Skin exam: Present: dry, intact - Patient Status Disposition: Home, Self-Care Condition: Good Functional capacity at discharge: independent ambulation Overall status at discharge: patient is back to baseline - Discharge Instructions Instructions: Atrial Fibrillation (DC) Follow Up With: Quynh Pulido CNP [Primary Care Provider] - 08/31/17 9:00 am Layton Langston MD [Partnered Physician] - (Please call for follow-up appointment within 1-2 weeks if you have not heard from the office.) - Diet and Activity Activity: increase activity as tolerated Diet: advance to your usual diet
[2017-08-18] MEDS ORDERED: Warfarin perPT PO PRN (18:00)
[2017-08-18] MEDS ORDERED: *HR* Warfarin 5 MG TABLET PO ONE (18:00)
--- NOTE | 2017-08-20 21:12 | Electrocardiograph Report ---
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
== END 2017-08-18 14:24 | disposition home or self-care (01) ==
LOC: EMEROO 11:21 → 3BNU 11:21
PROVIDERS: ADMIT Family Medicine; ATTEND Family Medicine